=== PATIENT | male | born 1970 | race Caucasian/White ===

== ENCOUNTER 2018-12-05 22:19 | Inpatient (IN) | payer OTHER ==
[2018-12-05] MEDS ORDERED: NACL 0.9% 3 ML SYG IV (23:00)
[2018-12-05] MEDS ORDERED: ONDANSETRON 4 MG INJ IV (23:00)
[2018-12-05] MEDS ORDERED: GLUCOSE GEL 15 GRAM TUBE PO ×2 (23:00)
[2018-12-05] MEDS ORDERED: GLUCAGON 1 MG INJ IM (23:00)
[2018-12-05] MEDS ORDERED: DEXTROSE 50% 50 ML SYRINGE IV ×2 (23:00)
[2018-12-05] MEDS ORDERED: GLUCOSE GEL 15 GRAM TUBE BUCCAL (23:00)
[2018-12-05] MEDS: SOD CHLORIDE 0.9% 1,000 ML IV (23:16)
[2018-12-05] MEDS: HYDROCODONE/APAP (5/325) TAB PO (23:23)
[2018-12-05 23:32] LABS: ADD MAN DIFF? NO
[2018-12-05 23:34] LABS: BASOPHIL # 0.1 10^3/ul (0.0-0.1); BASOPHILS % 0.4 % (0.0-2.0); EOSINOPHILS # 0.2 10^3/ul (0.0-0.5); EOSINOPHILS % 1.5 % (0.0-7.0); HEMATOCRIT 40.2 % (42.0-52.0); HEMOGLOBIN 13.7 g/dl (14.0-18.0); LYMPHOCYTES # 2.8 10^3/ul (0.8-2.9); LYMPHOCYTES % 24.7 % (15.0-51.0); MEAN CORPUSCULAR HEMOGLOBIN 29.7 pg (29.0-33.0); MEAN CORPUSCULAR HGB CONC 34.1 g/dl (32.0-37.0); MEAN CORPUSCULAR VOLUME 87.2 fl (82.0-101.0); MEAN PLATELET VOLUME 9.9 fl (7.4-10.4); MONOCYTE # 0.8 10^3/ul (0.3-0.9); MONOCYTES % 7.2 % (0.0-11.0); NEUTROPHIL # 7.4 10^3/ul (1.6-7.5); NEUTROPHILS % 65.7 % (39.0-77.0); PLATELET COUNT 254 10^3/UL (140-415); RED BLOOD COUNT 4.61 10^6/ul (4.70-6.10); RED CELL DISTRIBUTION WIDTH 13.7 % (11.5-14.5)
[2018-12-05 23:34] LABS: WHITE BLOOD COUNT 11.3 10^3/ul (4.8-10.8)
[2018-12-05 23:54] LABS: ALANINE AMINOTRANSFERASE 40 IU/L (13-69); ALBUMIN 3.7 g/dl (3.3-4.9); ALBUMIN/GLOBULIN RATIO 1.19; ALKALINE PHOSPHATASE 123 IU/L (42-121); ANION GAP 11 (5-13); ASPARTATE AMINO TRANSFERASE 24 IU/L (15-46); BILIRUBIN,INDIRECT 0.3 mg/dl (0-1.1); BILIRUBIN,TOTAL 0.3 mg/dl (0.2-1.3); BLOOD UREA NITROGEN 11 mg/dl (7-20); CARBON DIOXIDE 28 mmol/L (21-31); CHLORIDE 98 mmol/L (97-110); CREATININE 0.41 mg/dl (0.61-1.24); Estimated GFR > 60 mL/min (>60); GLUCOSE 299 mg/dl (70-220); POTASSIUM 3.9 mmol/L (3.5-5.1); SODIUM 137 mmol/L (135-144); TOTAL PROTEIN 6.8 g/dl (6.1-8.1)
[2018-12-05] MEDS: PIPER-TAZO 3.375 GM IV (PMX) 100 ML IVPB (23:55)
[2018-12-06] MEDS: morphine 2 MG INJ IV ×4 (00:55→17:06)
[2018-12-06] MEDS: ACCU-CHEK XX (01:59)
[2018-12-06] MEDS ORDERED: INSULIN ASPART [NOVOLOG] 3 ML PEN SC (02:30)
[2018-12-06] MEDS: INSULIN ASPART [NOVOLOG] 3 ML PEN SC ×8 (02:42→21:09)
[2018-12-06 03:01] LABS: GLUCOSE 393 mg/dl (70-220)
[2018-12-06 05:08] LABS: ADD MAN DIFF? NO
[2018-12-06 05:18] LABS: WHITE BLOOD COUNT 10.9 10^3/ul (4.8-10.8)
[2018-12-06 05:18] LABS: BASOPHIL # 0.1 10^3/ul (0.0-0.1); BASOPHILS % 0.5 % (0.0-2.0); EOSINOPHILS # 0.1 10^3/ul (0.0-0.5); EOSINOPHILS % 1.3 % (0.0-7.0); HEMATOCRIT 37.9 % (42.0-52.0); HEMOGLOBIN 12.7 g/dl (14.0-18.0); LYMPHOCYTES # 2.6 10^3/ul (0.8-2.9); LYMPHOCYTES % 23.6 % (15.0-51.0); MEAN CORPUSCULAR HEMOGLOBIN 29.6 pg (29.0-33.0); MEAN CORPUSCULAR HGB CONC 33.5 g/dl (32.0-37.0); MEAN CORPUSCULAR VOLUME 88.3 fl (82.0-101.0); MEAN PLATELET VOLUME 10.3 fl (7.4-10.4); MONOCYTE # 0.7 10^3/ul (0.3-0.9); MONOCYTES % 6.7 % (0.0-11.0); NEUTROPHIL # 7.3 10^3/ul (1.6-7.5); NEUTROPHILS % 67.3 % (39.0-77.0); PLATELET COUNT 248 10^3/UL (140-415); RED BLOOD COUNT 4.29 10^6/ul (4.70-6.10); RED CELL DISTRIBUTION WIDTH 13.6 % (11.5-14.5)
[2018-12-06 05:52] LABS: ALANINE AMINOTRANSFERASE 35 IU/L (13-69); ALBUMIN 3.1 g/dl (3.3-4.9); ALKALINE PHOSPHATASE 123 IU/L (42-121); ANION GAP 7 (5-13); ASPARTATE AMINO TRANSFERASE 24 IU/L (15-46); BILIRUBIN,INDIRECT 0.1 mg/dl (0-1.1); BILIRUBIN,TOTAL 0.1 mg/dl (0.2-1.3); BLOOD UREA NITROGEN 12 mg/dl (7-20); CALCIUM 8.7 mg/dl (8.4-10.2); CARBON DIOXIDE 27 mmol/L (21-31); CHLORIDE 102 mmol/L (97-110); CREATININE 0.42 mg/dl (0.61-1.24); Estimated GFR > 60 mL/min (>60); GLUCOSE 322 mg/dl (70-220); MAGNESIUM 1.8 mg/dl (1.7-2.5); POTASSIUM 3.7 mmol/L (3.5-5.1); SODIUM 136 mmol/L (135-144); TOTAL PROTEIN 5.9 g/dl (6.1-8.1)
[2018-12-06 05:58] LABS: HEMOGLOBIN A1C 11.5 % (0-5.9)
[2018-12-06] MEDS: PIPER-TAZO 3.375 GM IV (PMX) 100 ML IVPB ×4 (05:58→23:48)
[2018-12-06] MEDS: INSULIN GLARGINE [LANTus] (100 UNITS/ML) SYG SC ×2 (08:00→10:53)
[2018-12-06] MEDS: LISINOPRIL 5 MG TAB PO (08:38)
[2018-12-06] MEDS ORDERED: ASPIRIN (EC) 81 MG TAB PO (09:00)
[2018-12-06] MEDS: HYDROCODONE/APAP (5/325) TAB PO ×3 (10:55→23:48)
[2018-12-06 13:12] LABS: INR 1.16; PROTIME 14.9 Sec (11.9-14.9); PT RATIO 1.2
[2018-12-06 13:13] LABS: PARTIAL THROMBOPLASTIN TIME 30.8 Sec (23.0-35.0)
[2018-12-06] MEDS: SOD CHLORIDE 0.9% 1,000 ML IV (20:47)
[2018-12-06] MEDS: ATORVASTATIN 40 MG TAB PO (20:48)
[2018-12-06] MEDS: morphine 4 MG/ML VIAL IV (20:50)
[2018-12-07] MEDS: ACCU-CHEK XX (02:06)
[2018-12-07] MEDS: morphine 4 MG/ML VIAL IV ×4 (04:25→11:34)
[2018-12-07 05:27] LABS: ADD MAN DIFF? NO
[2018-12-07 05:30] LABS: BASOPHIL # 0.1 10^3/ul (0.0-0.1); BASOPHILS % 0.5 % (0.0-2.0); EOSINOPHILS # 0.1 10^3/ul (0.0-0.5); EOSINOPHILS % 1.4 % (0.0-7.0); HEMATOCRIT 38.3 % (42.0-52.0); HEMOGLOBIN 12.7 g/dl (14.0-18.0); LYMPHOCYTES # 2.5 10^3/ul (0.8-2.9); LYMPHOCYTES % 26.4 % (15.0-51.0); MEAN CORPUSCULAR HEMOGLOBIN 29.6 pg (29.0-33.0); MEAN CORPUSCULAR HGB CONC 33.2 g/dl (32.0-37.0); MEAN CORPUSCULAR VOLUME 89.3 fl (82.0-101.0); MEAN PLATELET VOLUME 10.2 fl (7.4-10.4); MONOCYTE # 0.7 10^3/ul (0.3-0.9); MONOCYTES % 7.2 % (0.0-11.0); NEUTROPHIL # 6.1 10^3/ul (1.6-7.5); NEUTROPHILS % 63.9 % (39.0-77.0); PLATELET COUNT 251 10^3/UL (140-415); RED BLOOD COUNT 4.29 10^6/ul (4.70-6.10); RED CELL DISTRIBUTION WIDTH 13.4 % (11.5-14.5)
[2018-12-07 05:30] LABS: WHITE BLOOD COUNT 9.5 10^3/ul (4.8-10.8)
[2018-12-07] MEDS: PIPER-TAZO 3.375 GM IV (PMX) 100 ML IVPB ×4 (05:40→23:30)
[2018-12-07 06:02] LABS: ANION GAP 7 (5-13); BLOOD UREA NITROGEN 12 mg/dl (7-20); CALCIUM 8.7 mg/dl (8.4-10.2); CARBON DIOXIDE 27 mmol/L (21-31); CHLORIDE 104 mmol/L (97-110); CREATININE 0.39 mg/dl (0.61-1.24); Estimated GFR > 60 mL/min (>60); GLUCOSE 299 mg/dl (70-220); MAGNESIUM 1.9 mg/dl (1.7-2.5); POTASSIUM 3.8 mmol/L (3.5-5.1); SODIUM 138 mmol/L (135-144)
[2018-12-07] MEDS: INSULIN ASPART [NOVOLOG] 3 ML PEN SC ×7 (07:50→21:00)
[2018-12-07] MEDS: LISINOPRIL 5 MG TAB PO (09:00)
[2018-12-07] MEDS: INSULIN GLARGINE [LANTus] (100 UNITS/ML) SYG SC (09:02)
[2018-12-07] MEDS: HYDROmorphONE 1 MG/ML SYG IV ×2 (14:18→23:29)
[2018-12-07] MEDS: SOD CHLORIDE 0.9% 1,000 ML IV (16:00)
[2018-12-07] MEDS ORDERED: MIDAZOLAM 1 MG/ML 2 ML INJ (17:38)
[2018-12-07] MEDS ORDERED: ONDANSETRON 4 MG INJ (18:11)
[2018-12-07] MEDS ORDERED: ETOMIDATE 20 MG INJ (18:11)
[2018-12-07] MEDS ORDERED: LIDOCAINE 2% (SDV) 5 ML INJ (18:11)
[2018-12-07] MEDS ORDERED: PROPOFOL 20 ML (18:11)
[2018-12-07] MEDS ORDERED: METOCLOPRAMIDE 10 MG INJ IV (18:30)
[2018-12-07] MEDS ORDERED: MEPERIDINE 25 MG INJ IV (18:30)
[2018-12-07] MEDS ORDERED: hydrALAzine 20 MG INJ IV (18:30)
[2018-12-07] MEDS ORDERED: DIPHENHYDRAMINE 50 MG INJ IV (18:30)
[2018-12-07] MEDS ORDERED: HYDROmorphONE 1 MG/5 ML IV SYRINGE IV (18:30)
[2018-12-07] MEDS ORDERED: LABETALOL HCL 20MG INJ IV (18:30)
[2018-12-07] MEDS: HYDROmorphONE 1 MG/5 ML IV SYRINGE IV (18:43)
[2018-12-07] MEDS: FENTAnyl 50 MCG/ML VIAL IV (18:44)
[2018-12-07] MEDS: ONDANSETRON 4 MG INJ IV (18:44)
[2018-12-07] MEDS: ATORVASTATIN 40 MG TAB PO (20:19)
[2018-12-07] MEDS: ACETAMINOPHEN 325 MG TAB PO (21:22)
[2018-12-08] MEDS: ACCU-CHEK XX (02:00)
[2018-12-08] MEDS: SOD CHLORIDE 0.9% 1,000 ML IV ×2 (03:56→12:00)
[2018-12-08] MEDS: HYDROmorphONE 1 MG/ML SYG IV ×5 (04:37→21:17)
[2018-12-08 05:11] LABS: ADD MAN DIFF? NO
[2018-12-08 05:25] LABS: BASOPHIL # 0.1 10^3/ul (0.0-0.1); BASOPHILS % 0.5 % (0.0-2.0); EOSINOPHILS # 0.1 10^3/ul (0.0-0.5); EOSINOPHILS % 1.4 % (0.0-7.0); HEMATOCRIT 39.2 % (42.0-52.0); HEMOGLOBIN 13.1 g/dl (14.0-18.0); LYMPHOCYTES # 2.3 10^3/ul (0.8-2.9); LYMPHOCYTES % 23.9 % (15.0-51.0); MEAN CORPUSCULAR HEMOGLOBIN 29.8 pg (29.0-33.0); MEAN CORPUSCULAR HGB CONC 33.4 g/dl (32.0-37.0); MEAN CORPUSCULAR VOLUME 89.1 fl (82.0-101.0); MEAN PLATELET VOLUME 10.4 fl (7.4-10.4); MONOCYTE # 0.6 10^3/ul (0.3-0.9); MONOCYTES % 6.6 % (0.0-11.0); NEUTROPHIL # 6.5 10^3/ul (1.6-7.5); PLATELET COUNT 286 10^3/UL (140-415); RED CELL DISTRIBUTION WIDTH 13.6 % (11.5-14.5)
[2018-12-08 05:25] LABS: WHITE BLOOD COUNT 9.7 10^3/ul (4.8-10.8)
[2018-12-08 05:33] LABS: ANION GAP 11 (5-13); BLOOD UREA NITROGEN 10 mg/dl (7-20); CALCIUM 8.8 mg/dl (8.4-10.2); CARBON DIOXIDE 26 mmol/L (21-31); CHLORIDE 101 mmol/L (97-110); CREATININE 0.42 mg/dl (0.61-1.24); Estimated GFR > 60 mL/min (>60); GLUCOSE 277 mg/dl (70-220); MAGNESIUM 1.9 mg/dl (1.7-2.5); POTASSIUM 4.2 mmol/L (3.5-5.1); SODIUM 138 mmol/L (135-144)
[2018-12-08] MEDS: PIPER-TAZO 3.375 GM IV (PMX) 100 ML IVPB ×3 (05:55→18:18)
[2018-12-08] MEDS: INSULIN GLARGINE [LANTus] (100 UNITS/ML) SYG SC (09:08)
[2018-12-08] MEDS: INSULIN ASPART [NOVOLOG] 3 ML PEN SC ×7 (09:10→21:26)
[2018-12-08] MEDS: LISINOPRIL 5 MG TAB PO (09:15)
[2018-12-08] MEDS: HYDROCODONE/APAP (5/325) TAB PO ×3 (09:21→21:41)
[2018-12-08] MEDS: ATORVASTATIN 40 MG TAB PO (21:17)
[2018-12-09] MEDS: ACCU-CHEK XX (01:03)
[2018-12-09] MEDS: PIPER-TAZO 3.375 GM IV (PMX) 100 ML IVPB ×3 (01:03→11:41)
[2018-12-09] MEDS: HYDROmorphONE 1 MG/ML SYG IV ×4 (03:17→21:33)
[2018-12-09] MEDS: LISINOPRIL 5 MG TAB PO (08:45)
[2018-12-09] MEDS: INSULIN ASPART [NOVOLOG] 3 ML PEN SC ×6 (08:47→20:37)
[2018-12-09] MEDS: INSULIN GLARGINE [LANTus] (100 UNITS/ML) SYG SC ×2 (08:48→20:17)
[2018-12-09] MEDS: HYDROCODONE/APAP (5/325) TAB PO ×2 (08:53→15:05)
[2018-12-09] MEDS: CIPROFLOXACIN 500 MG TAB PO (17:49)
[2018-12-09] MEDS: ATORVASTATIN 40 MG TAB PO (20:14)
[2018-12-09] MEDS: metFORMIN 500 MG TAB PO (20:14)
[2018-12-10] MEDS: ACCU-CHEK XX (02:00)
[2018-12-10] MEDS: HYDROCODONE/APAP (5/325) TAB PO (02:12)
[2018-12-10] MEDS: CIPROFLOXACIN 500 MG TAB PO (05:54)
[2018-12-10] MEDS: metFORMIN 500 MG TAB PO (08:38)
[2018-12-10] MEDS: LISINOPRIL 5 MG TAB PO (08:39)
[2018-12-10] MEDS: INSULIN ASPART [NOVOLOG] 3 ML PEN SC ×4 (08:40→12:37)
[2018-12-10] MEDS: INSULIN GLARGINE [LANTus] (100 UNITS/ML) SYG SC (08:42)
[2018-12-10] MEDS: LACTOBACILLUS RHAMNOSUS CAP PO (12:34)
[2018-12-10] MEDS: HYDROmorphONE 1 MG/ML SYG IV (13:53)
== END 2018-12-10 15:01 | disposition home health service (06) | DRG 728 ==
LOC: MS1 22:19
PROC: 0V950ZX Drainage of Scrotum, Open Approach, Diagnostic (ICD-10-PCS; principal; 2018-12-07 17:30)
PROC: 0HDAXZZ Extraction of Inguinal Skin, External Approach (ICD-10-PCS; 2018-12-07 17:30)
DX: N49.2 Inflammatory disorders of scrotum (principal); Z68.41 Body mass index [BMI] 40.0-44.9, adult; I25.10 Atherosclerotic heart disease of native coronary artery without angina pectoris; E11.8 Type 2 diabetes mellitus with unspecified complications; I11.9 Hypertensive heart disease without heart failure; E78.5 Hyperlipidemia, unspecified; E11.65 Type 2 diabetes mellitus with hyperglycemia; L73.2 Hidradenitis suppurativa; L40.9 Psoriasis, unspecified; E66.9 Obesity, unspecified; B96.89 Other specified bacterial agents as the cause of diseases classified elsewhere; F17.290 Nicotine dependence, other tobacco product, uncomplicated; Z79.4 Long term (current) use of insulin; Z79.82 Long term (current) use of aspirin; I25.2 Old myocardial infarction; Z95.5 Presence of coronary angioplasty implant and graft; Z87.891 Personal history of nicotine dependence
CPT/HCPCS: 71045; 80048; 80053; 82947; 82962; 83036; 83735; 85025; 85610; 85730; 87070; 87075; 87086; 87102; 93005; 93306

== ENCOUNTER 2018-12-21 12:36 | Emergency (ER) | payer SELFPAY, OTHER | END 2018-12-21 15:56 | disposition left against medical advice (07) | LOC: E/R 12:36 | DX: Z53.21 Procedure and treatment not carried out due to patient leaving prior to being seen by health care provider (principal) ==